=== PATIENT | male | born 1990 | race Two or more races ===

== ENCOUNTER 2019-05-14 02:35 | Emergency (ER) | payer MEDICAID ==
[~2019-05-14] VITALS: Ht 172.7 cm; Wt 68.0 kg
[2019-05-14 02:41] VITALS: BP 158/91
== END 2019-05-14 03:07 | disposition home or self-care (01) ==
LOC: ED 03:00
DX: F15.150 Other stimulant abuse with stimulant-induced psychotic disorder with delusions (principal)
CPT/HCPCS: 93005; 99284

== ENCOUNTER 2019-05-14 03:55 | Emergency (ER) | payer MEDICAID ==
[~2019-05-14] VITALS: Ht 172.7 cm; Wt 61.1 kg
[2019-05-14 03:58] VITALS: BP 149/80
== END 2019-05-14 04:15 | disposition left against medical advice (07) ==
LOC: ED 04:04
DX: Z53.21 Procedure and treatment not carried out due to patient leaving prior to being seen by health care provider (principal)

== ENCOUNTER 2019-05-14 04:08 | Emergency (ER) | payer MEDICAID | END 2019-05-14 04:46 | disposition left against medical advice (07) | LOC: ED 04:13 | DX: Z53.21 Procedure and treatment not carried out due to patient leaving prior to being seen by health care provider (principal) ==

== ENCOUNTER 2019-05-14 10:08 | Emergency (ER) | payer MEDICAID, OTHER ==
[~2019-05-14] VITALS: Ht 170.2 cm; Wt 60.5 kg
[2019-05-14 10:27] VITALS: BP 126/72
== END 2019-05-14 16:25 | disposition home or self-care (01) ==
LOC: MERGE 11:25 → ED 11:25
DX: F41.9 Anxiety disorder, unspecified (principal); F15.151 Other stimulant abuse with stimulant-induced psychotic disorder with hallucinations
CPT/HCPCS: 36415; 80053; 80307; 85025; 99284